=== PATIENT | male | born 1990 | race Caucasian/White ===

== ENCOUNTER → 2019-11-02 | Outpatient (CLI) | payer BC ==
--- NOTE | 2019-11-02 12:12 | KCIC ---
Examination: MRI of the right knee without contrast HISTORY: History of right knee pain, injury COMPARISON: None available TECHNIQUE: Multiplanar, multisequence MR imaging of the right knee was performed without contrast. FINDINGS: The anterior cruciate ligament, posterior cruciate ligament appear intact. The medial meniscus appears intact. Subtle tiny questionable radial tear body of the lateral meniscus. The medial collateral ligament is intact. The lateral collateral ligamentous complex including the fibular collateral ligament, biceps femoris tendon, popliteus tendon appear intact. The extensor mechanism appears intact. There is mild increased T2 signal identified in the suprapatellar fat could be secondary to impingement. Small knee joint effusion. The medial retinaculum and lateral retinaculum appears intact. Mild increased T2 signal identified in the lateral tibial plateau. Minimal fraying of the cartilage in the lateral compartment. IMPRESSION: 1. Questionable tiny radial tear body of the lateral meniscus. 2. Mild trabecular edema identified in the lateral tibial plateau could be secondary to bone contusion or impaction edema. 3. Mild increased T2 signal identified suprapatellar fat, correlate for impingement. 4. Small knee joint effusion. Electronically signed by: Sanya Arredondo MD (11/02/2019 12:09 PM) [id number]
== END | disposition home or self-care (01) ==
LOC: KCIC MRI 10:41
PROVIDERS: ATTEND Orthopaedic Surgery
DX: S83.281A Other tear of lateral meniscus, current injury, right knee, initial encounter (principal); X58.XXXA Exposure to other specified factors, initial encounter; M25.461 Effusion, right knee; Y93.89 Activity, other specified; Y92.89 Other specified places as the place of occurrence of the external cause; Y99.8 Other external cause status
CPT/HCPCS: 73721

== ENCOUNTER → 2020-01-18 | Outpatient (CLI) | payer BC | LOC: LAB 13:23 | PROVIDERS: ATTEND Orthopaedic Surgery | DX: U07.1 COVID-19 (principal) | CPT/HCPCS: U0003 ==